=== PATIENT | female | born 1995 | race Hispanic/Latino ===

== ENCOUNTER 2021-06-28 15:16 | Emergency (ER) | payer MEDICAID ==
[~2021-06-28] VITALS: Ht 157.5 cm; Wt 82.6 kg
[2021-06-28 17:04] VITALS: BP 128/84
== END 2021-06-28 17:06 | disposition home or self-care (01) ==
LOC: EDH 15:16
DX: O90.89 Other complications of the puerperium, not elsewhere classified (principal); E87.70 Fluid overload, unspecified; R60.1 Generalized edema
CPT/HCPCS: 99281